=== PATIENT | male | born 2005 | race Hispanic/Latino ===

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

== ENCOUNTER 2024-08-14 17:04 | Emergency (ER) | payer SELFPAY ==
[~2024-08-14] VITALS: Ht 180.3 cm; Wt 112.0 kg
[2024-08-14] MEDS ORDERED: ACETAMINOPHEN 500 MG TAB PO ONE (17:15)
[2024-08-14] MEDS ORDERED: KETOROLAC TROMETHAMINE 30 MG/ML VIAL IM ONE (17:15)
[2024-08-14] MEDS ORDERED: CYCLOBENZAPRINE10 MG PO (18:06)
[2024-08-14] MEDS ORDERED: NAPROSYN500 MG PO (18:06)
[2024-08-14] MEDS ORDERED: LIDODERM1 EACH TOP (18:06)
[2024-08-14 18:11] VITALS: BP 123/78
== END 2024-08-14 18:12 | disposition home or self-care (01) ==
LOC: ED 17:04
DX: S39.012A Strain of muscle, fascia and tendon of lower back, initial encounter (principal); X58.XXXA Exposure to other specified factors, initial encounter
CPT/HCPCS: 96372; 99283; A9270; J1885